=== PATIENT | male | born 1985 | race American Indian/Alaskan Native ===

== ENCOUNTER 2021-03-13 07:42 | Emergency (ER) | payer SELFPAY ==
[2021-03-13 08:08] VITALS: BP 166/97
--- NOTE | 2021-03-13 09:07 | Emergency Department Report ---
ED Back Pain/Injury HPI - General Chief Complaint: Back Pain/Injury Stated Complaint: LOWER BACK PAIN Time Seen by Provider: 03/13/21 08:30 Source: patient Limitations: No Limitations - History of Present Illness Initial Comments: 35-year-old male with a history of tobacco use presents to the ER today with complaints of lower back pain. Patient states that 2 days ago he was on a roller coaster at [facility] and he was being jerked around on the roller coaster. After getting up the roller coaster he started having pain in his lower back but when he woke up yesterday morning pain was worse. He states that the pain is worse when he goes from a sitting to a standing position, laying to standing position or with certain other movements. He denies any radiation of the pain. He denies any associated abdominal pain. He denies any lower extremity numbness, tingling or weakness. He denies any saddle anesthesia. He denies any bowel or bladder incontinence. He denies any issues with his back in the past. He has not taken anything for the pain today. MD Complaint: back pain, back injury -: Gradual (2 days ago ) - Related Data Previous Rx's Medication Instructions Recorded Last Taken Type Ibuprofen [Motrin] 800 mg PO Q8HR PRN #30 tablet 03/13/21 Unknown Rx methOCARBAMOL [Robaxin TAB] 750 mg PO Q8H PRN #30 tablet 03/13/21 Unknown Rx ED Review of Systems ROS: Stated complaint: LOWER BACK PAIN Other details as noted in HPI Comment: All other systems reviewed and negative Constitutional: denies: chills, fever ENT: denies: ear pain, throat pain Respiratory: denies: cough, shortness of breath, wheezing Cardiovascular: denies: chest pain, palpitations Gastrointestinal: denies: abdominal pain, nausea, vomiting, diarrhea, constipation, hematemesis, hematochezia Genitourinary: denies: urgency, dysuria, frequency, hematuria, discharge, test icular pain, testicular mass Musculoskeletal: back pain. denies: joint swelling, arthralgia, myalgia Skin: denies: rash, lesions Neurological: denies: headache, weakness, numbness, paresthesias, confusion, abnormal gait, vertigo Psychiatric: denies: anxiety, depression, auditory hallucinations, visual hallucinations, homicidal thoughts, suicidal thoughts Hematological/Lymphatic: denies: easy bleeding, easy bruising, swollen glands ED Past Medical Hx - Past Medical History Hx Seizures: Yes - Surgical History Past Surgical History?: No - Social History Smoking Status: Current Every Day Smoker Substance Use Type: None - Medications Home Medications: Home Medications Medication Instructions Recorded Confirmed Last Taken Type Ibuprofen [Motrin] 800 mg PO Q8HR PRN #30 tablet 03/13/21 Unknown Rx methOCARBAMOL [Robaxin TAB] 750 mg PO Q8H PRN #30 tablet 03/13/21 Unknown Rx ED Physical Exam - General Limitations: No Limitations General appearance: alert, in no apparent distress - Head Head exam: Present: atraumatic, normocephalic, normal inspection - Eye Eye exam: Present: normal appearance, PERRL, EOMI Pupils: Present: normal accommodation - Neck Neck exam: Present: normal inspection, full ROM - Respiratory Respiratory exam: Present: normal lung sounds bilaterally. Absent: respiratory distress, wheezes, rales, rhonchi - Cardiovascular Cardiovascular Exam: Present: regular rate, normal rhythm, normal heart sounds - GI/Abdominal GI/Abdominal exam: Present: soft. Absent: distended, tenderness, guarding, rebound - Back Exam Back exam: Present: normal inspection, full ROM (but ROM is painful), other (Patient has pain mainly on range of motion but not really on palpation). Absent: paraspinal tenderness, vertebral tenderness - Neurological Exam Neurological exam: Present: alert, oriented X3, CN II-XII intact, normal gait - Psychiatric Psychiatric exam: Present: normal affect, normal mood - Skin Skin exam: Present: intact ED Course Vital Signs 03/13/21 08:05 Temperature 99.0 F Pulse Rate 91 H Respiratory 20 Rate Blood Pressure 166/97 Blood Pressure 166/97 [Left] O2 Sat by Pulse 100 Oximetry ED Medical Decision Making - Radiology Data Radiology results: report reviewed Patient: TAMIKO SAAVEDRA JR MR#: [id number] : 1985 Acct:[id number] Age/Sex: 35 / M ADM Date: 03/13/21 Loc: ED Attending Dr: Ordering Physician: BALBINA DIMAS Date of Service: 03/13/21 Procedure(s): XR spine lumbosacral 2-3V Accession Number(s): [id number] cc: BALBINA DIMAS Fluoro Time In Minutes: XR spine lumbosacral, 3 views INDICATION / CLINICAL INFORMATION: low back pain/jerked on roller coaster. COMPARISON: None available. FINDINGS: BONES/JOINT(S): Mild right convex curvature of the lumbar spine. There is mi nimal retrolisthesis of L4 on L5. Lumbar spinal alignment is otherwise preserved. There is mild disc space height loss at L4-L5 and L5-S1. Vertebral body heights are intact. No evidence of fracture. PARASPINAL SOFT TISSUES:No significant abnormality. ADDITIONAL FINDINGS: None. IMPRESSION: Lower lumbar spondylosis. No acute osseous abnormality. Signer Name: Ector Sylvester MD Signed: 03/13/2021 9:44 AM Workstation Name: As Seen on TV Transcribed By: CALE Dictated By: ECTOR SYLVESTER MD Electronically Authenticated By: ECTOR SYLVESTER MD Signed Date/Time: 03/13/21943 DD/ 2 TD/TT: - Medical Decision Making The patient presented with acute back pain. The patient is resting comfortably and, is alert, talkative, interactive and in no distress. The patient is neurologically intact and is ambulatory in the ED. the patient has no fever, no bowel or bladder incontinence, no saddle anesthesia and is otherwise alert and well-appearing. X-ray of the lumbar spine shows nothing acute. His history, physical examination and diagnostic testing does not suggest the presence of acute spinal epidural abscess, acute epidural bleed, cauda equina syndrome, abdominal/thoracic aortic aneurysm, aortic dissection or other acute process requiring further testing, treatment or consultation in the emergency department. The vital signs have been stable. The patient condition is stable and appropriate for discharge. Suspect lumbar strain at this time. Discussed suspected diagnosis and treatment plan with patient. Patient expressed understanding of instructions and agree with plan. Patient was stable at time of discharge. Patient stable at time of discharge. Critical care attestation.: If time is entered above; I have spent that time in minutes in the direct care of this critically ill patient, excluding procedure time. ED Disposition Clinical Impression: Lumbar strain Disposition: DC-01 TO HOME OR SELFCARE Is pt being admited?: No Does the pt Need Aspirin: No Condition: Stable Instructions: Lumbar Sprain Additional Instructions: Take the Motrin and the Robaxin as prescribed. Follow-up with primary care doctor and/or surgery specialist in 1 to 2 weeks if your symptoms persist. Return to the ER if symptoms worsens or changes in any way. Prescriptions: Ibuprofen [Motrin] 800 mg PO Q8HR PRN #30 tablet PRN Reason: PAIN methOCARBAMOL [Robaxin TAB] 750 mg PO Q8H PRN #30 tablet PRN Reason: spasm Referrals: RAZA GOFF MD [Staff Physician] - 7-10 days Forms: Work/School Release Form(ED) Time of Disposition: 10:01
--- NOTE | 2021-03-13 09:49 | XRay Report ---
XR spine lumbosacral, 3 views INDICATION / CLINICAL INFORMATION: low back pain/jerked on roller coaster. COMPARISON: None available. FINDINGS: BONES/JOINT(S): Mild right convex curvature of the lumbar spine. There is minimal retrolisthesis of L 4 on L5. Lumbar spinal alignment is otherwise preserved. There is mild disc space height loss at L4-L 5 and L5-S1. Vertebral body heights are intact. No evidence of fracture. PARASPINAL SOFT TISSUES:No significant abnormality. ADDITIONAL FINDINGS: None. IMPRESSION: Lower lumbar spondylosis. No acute osseous abnormality. Signer Name: Diallo Sylvester MD Signed: 03/13/2021 9:44 AM Workstation Name: [employer]
== END 2021-03-13 10:09 | disposition home or self-care (01) ==
LOC: ED 07:42
DX: S39.012A Strain of muscle, fascia and tendon of lower back, initial encounter (principal); F17.200 Nicotine dependence, unspecified, uncomplicated; Z79.899 Other long term (current) drug therapy; Z86.69 Personal history of other diseases of the nervous system and sense organs; X58.XXXA Exposure to other specified factors, initial encounter; Y93.89 Activity, other specified; Y92.89 Other specified places as the place of occurrence of the external cause; Y99.8 Other external cause status
CPT/HCPCS: 72100

== ENCOUNTER 2021-07-10 22:21 | Emergency (ER) | payer SELFPAY | END 2021-07-11 01:20 | disposition left against medical advice (07) | LOC: ED 22:21 | DX: Z00.8 Encounter for other general examination (principal); Z53.21 Procedure and treatment not carried out due to patient leaving prior to being seen by health care provider ==